=== PATIENT | female | born 1935 | race Two or more races ===

== ENCOUNTER 2024-03-19 18:15 | Emergency (ER) | payer OTHER ==
[~2024-03-19] VITALS: Ht 162.6 cm; Wt 85.5 kg
--- NOTE | 2024-03-19 18:50 | ED.PDOC ---
History of Present Illness HPI Comments 88 y/o F, with a Hx of arthritis, COPD w/3LPM PRN home O2, HLD, and HTN, is BIBA for c/o left-sided abdominal pain that radiates to underneath her left-breast and intermittent shortness of breath and nonproductive cough for 2x weeks, today. Patient endorses on symptoms worsening within the past 2x weeks amidst pain medication and prednisone placement and use following recent visit from [facility] and her PCP, respectively, following onset. She comments on pain being sharp in quality and worse whenever she coughs or takes a deep breath. Per [facility] report, patient was noted to have been found on her PRN 3LPM home O2 with an SpO2 of 99%, breathing shallowly, in addition to a respiratory rate in the 60-70 range and a blood pressure of 213/74. En route, patient was given 100ug fentanyl and 4mg Zofran en route. Upon arrival to ED, patient still endorses on having pain. She denies having any chest pain, fever, chills, nausea, vomiting, or other associated symptoms or modifiers at this time. Chief Complaint: Abdominal Pain Time Seen by MD: 18:30 Reviewed Notes: Nurses Notes, Dental Professional Notes, Medications, Allergies Allergies: Coded Allergies: Acetaminophen (Verified Allergy, Unknown, 03/19/24) Hydrocodone (Verified Allergy, Unknown, 03/19/24) Information Source: Patient, Emergency Med Personnel Mode of Arrival: EMS Severity: Moderate Timing: Weeks Duration: Since onset Prehospital treatment: 12 Lead EKG, Director Labor Standards, Oxygen, Pain Meds (100ug F entanyl ), Other (4mg Zofran ) Past Medical History PAST MEDICAL HISTORY: Arthritis, COPD (3lpm PRN home O2), High Lipids, HTN Past Medical History (Other): shingles Surgical History: Denies all surgeries SPRING LAYER History: Denies all SPRING LAYER Hx Family History Family History: Unknown Social History Smoker: Non-Smoker Alcohol: Denies ETOH Use Drugs: Denies Drug Use Lives In: Home Respiratory: reports: cough, shortness of breath Gastrointestinal: reports: abdominal pain (left-sided ) All Other Systems: Reviewed and Negative (negative unless otherwise stated above or in HPI) Physical Exam Exam Comments General Appearance: No Apparent Distress, Normal, Other (appears uncomfortable ) HEENT: Normal ENT Inspection, Pharynx Normal, TMs Normal Neck: Full Range of Motion, Non-Tender, Normal, Normal Inspection Respiratory: Chest Non-Tender, No Accessory Muscle Use, No Respiratory Distress, Other (coarse breath sounds, bilaterally, tachypneic) Cardiovascular: No Edema, No JVD, No Murmur, No Gallop, Normal Peripheral Pulses, Regular Rate/Rhythm, Tachycardia Breast Exam: Deferred Gastrointestinal: LUQ, No Organomegaly, No Pulsatile Mass, Normal Bowel Sounds, Soft, Tenderness (LUQ) Genitalia: Deferred Pelvic: Deferred Rectal: Deferred Extremities: No calf tenderness, Normal capillary refill, Normal inspection, Normal range of motion, Non-tender, No pedal edema Musculoskeletal : Apperance: Normal Neurologic: Alert, state assessed properties director II-XII nml as Tested, No Motor Deficits, Normal Affect, Normal Mood, No Sensory Deficits Cerebellar Function: Normal Reflexes: Normal Skin: Dry, Normal Color, Warm Lymphatic: No Adenopathy Was a procedure done? Was a procedure done?: No EKG EKG : Pulse Rate (adult): 102 [place]: Normal Cardiac Rhythm: ST Block: None Hypertrophy: None ST: Normal Differential Dx Considerations may include: musculoskeletal pain, nephrolithiasis, pyelonephritis, cystitis, gastritis, gastroenteritis, COPD exacerbation, URI, pleural effusions, viral syndrome X-Ray, Labs, Meds, VS Vital Signs Date Time Temp Pulse Resp B/P (MAP) Pulse Ox O2 Delivery O2 Flow Rate FiO2 03/20/24 00:00 77 20 155/75 (101) 96 03/19/24 23:29 Nasal Cannula* 2 28 03/19/24 23:23 98.7 83 16 158/69 (98) 97 98.7 03/19/24 22:19 89 20 132/76 03/19/24 21:23 98.2 89 16 132/76 (94) 96 98.2 03/19/24 18:50 102 03/19/24 18:20 102 03/19/24 18:20 98.9 97 30 136/92 (107) 99 Lab Test 03/19/24 22:13 03/19/24 19:45 03/19/24 18:55 Range/Units Troponin I High Sensitivity 11 10 9 </=34 ng/L White Blood Count 13.1 H 4.4-10.8 10^3/uL Red Blood Count 4.36 4.0-5.20 10^6/uL Hemoglobin 13.2 12.2-16.2 g/dL Hematocrit 39.3 36.0-46.0 % Mean Corpuscular Volume 90.1 80.0-100.0 fL Mean Corpuscular Hemoglobin 30.3 28.0-32.0 pg Mean Corpuscular Hemoglobin Concent 33.6 32.0-36.0 g/dL Red Cell Distribution Width 16.9 H 11.8-14.3 % Platelet Count 240 140-450 10^3/uL Mean Platelet Volume 6.8 L 6.9-10.8 fL Neutrophils (%) (Auto) 37.0-80.0 % Lymphocytes (%) (Auto) 10.0-50.0 % Monocytes (%) (Auto) 0.0-12.0 % Basophils (%) (Auto) 0.0-2.0 % Neutrophils # (Auto) 1.6-8.6 10 ^3/uL Lymphocytes # (Auto) 0.4-5.4 10 ^3/uL Monocytes # (Auto) 0-1.3 10 ^3/uL Differential Total Cells Counted 100.0 100 Neutrophils % (Manual) 86 H 37.0-80.0 Band Neutrophils % (Manual) 3 Lymphocytes % (Manual) 6 L 10.0-50.0 Monocytes % (Manual) 5 0-12 Eosinophils % (Manual) 0 0-7 Basophils % (Manual) 0 0.0-2.0 Metamyelocytes % (manual) 0 Myelocytes % (Manual) 0 Promyelocytes % (Manual) 0 Blast Cells % (Manual) 0 Reactive Lymphocytes 0 Platelet Estimate Adequate D-Dimer, Quantitative 0.94 H 0.0-0.49 mg/L FEU Sodium Level 138 136-145 mmol/L Potassium Level 4.4 3.5-5.1 mmol/L Chloride Level 101 98-107 mmol/L Carbon Dioxide Level 31 20-31 mmol/L Anion Gap 6 5-15 Blood Urea Nitrogen 13 9-23 mg/dL Creatinine 0.72 0.550-1.02 mg/dL Glomerular Filtration Rate Calc 80 >90 mL/min BUN/Creatinine Ratio 18.1 10.0-20.0 Serum Glucose 123 H 74-106 mg/dL Calcium Level 10.0 8.7-10.4 mg/dL Total Bilirubin 0.6 0.2-1.0 mg/dL Aspartate Amino Transferase (AST) < 8 L 13-40 U/L Alanine Aminotransferase (ALT) 17 7-40 U/L Alkaline Phosphatase 46 46-116 U/L Total Protein 6.1 5.7-8.2 g/dL Albumin 4.4 3.2-4.8 g/dL Current Medications Medications (Trade) Dose Ordered Sig/Duncan Route Start Time Stop Time Status Last Admin Ondansetron HCl (Zofran) 4 mg ONCE ONCE IV 03/19/24 21:30 03/19/24 21:31 DC 03/19/24 22:18 Morphine Sulfate 4 mg ONCE ONCE IV 03/19/24 21:30 03/19/24 21:31 DC 03/19/24 22:19 [place] [address] Ph: [phone] DIAGNOSTIC IMAGING Diagnostic Imaging Report : [id number] Signed PATIENT: JUSTIN RIVERO ACCT: [id number] UNIT: [id number] : 1935 LOC: ER ROOM / BED: / AGE / SEX: 88 / F ADM STATUS: REG ER SERVICE 36 ORDERING PHYSICIAN: VALDO MCCRAY MD PROCEDURE(s): CXRP - CHEST PORTABLE REASON: sob ORDER NUMBER(s): [id number], ACCESSION NUMBER(s): [id number] CHEST RADIOGRAPH Indication: sob Technique: Single frontal view of the chest was obtained Comparison: None FINDINGS: Lines and Tubes: None Lungs: Diffuse interstitial prominence. Left lower lung zone opacification with obscuration of the left hemidiaphragm. Right mid lung zone atelectasis. Biapical pleural thickening. No pneumothorax. Cardiomediastinal contours: Size is within normal limits. Moderate atherosclerotic calcification and uncoiling of the aorta. Bones: No acute osseous abnormality. IMPRESSION: Opacification of the left lower lung zone with obscuration of the left hemidiaphragm which may be from overlying cardiac silhouette with underlying trace effusion/atelectasis / pneumonia not excluded. Right mid lung zone atelectasis. Biapical pleural thickening. Mild interstitial prominence could be from senescent changes with underlying pulmonary vascular congestion not excluded ATED BY: PASCALE MCDANIELS DO DICTATED DATE/TIME: 03/19/241942 SIGNED BY: PASCALE MCDANIELS DO SIGNED DATE/TIME: 03/19/241942 CC: [address] [address] Ph: [phone] DIAGNOSTIC IMAGING Diagnostic Imaging Report : [id number] Signed PATIENT: JUSTIN RIVERO ACCT: [id number] UNIT: [id number] : 1935 LOC: ER ROOM / BED: / AGE / SEX: 88 / F ADM STATUS: REG ER SERVICE 16 ORDERING PHYSICIAN: VALDO MCCRAY MD PROCEDURE(s): CTACH - CT ANGIO CHEST CONTRAST REASON: pleuritic pain, hypoxia, chest pain, elevated ddimer ORDER NUMBER(s): [id number], ACCESSION NUMBER(s): [id number] CLINICAL HISTORY: pleuritic pain, hypoxia, chest pain, elevated ddimer TECHNIQUE: CT angiogram of the chest was performed with intravenous contrast. 100 ml of omnipaque 350 was administered intravenously. 3D MIP reconstructed images were created and archived on the PACS system. This exam was performed according to our departmental dose optimization program. Up-to-date CT equipment and radiation dose reduction techniques are utilized as appropriate. CTDI: 30.86 DLP: 709.82 WID: COMPARISON: None FINDINGS: Lower Neck: Unremarkable Axilla, Mediastinum and Nikki: Small hiatal hernia. No thoracic lymphadenopathy. Heart and Great Vessels: Mild Cardiomegaly. 3-vessel coronary artery calcifications up to moderate in the left anterior descending coronary artery and right coronary artery. The thoracic aorta is patent and normal caliber containing moderate mixed atherosclerotic plaque. Dilatation of the right and left central pulmonary arteries. There is motion artifact in the right lower lobe pulmonary arteries. There is no central, segmental, or subsegmental pulmonary artery filling defects are seen to suggest pulmonary embolism. Airway, Lungs and Pleura: Soft tissue along the left lung apex in addition to bronchiectasis likely scarring. This is seen to a lesser extent in the right lung apex. There is mild bronchial wall thickening. There is soft tissue thickening and bronchiectasis in the lingula and anterior right middle lobe there are scattered nodular and ground-glass opacities predominantly in the right lower lobe. There is no pleural effusion or pneumothorax. Chest Wall and Osseous Structures: Chronic appearing mild compression fracture of T6. Mild thoracic spondylosis. Bony demineralization. No destructive osseous lesion. Upper abdomen: No acute abnormality. IMPRESSION: 1. No evidence of pulmonary embolism. 2. Scattered nodular and ground-glass opacities predominantly right lower lobe, likely atypical infection. 3. Scattered areas of scarring in the bilateral lung apices, in the lingula and anterior right middle lobe with volume loss and bronchiectasis. Consider sequelae of non tuberculosis mycobacterial infection. 4. Mild cardiomegaly and 3-vessel coronary artery calcifications up to moderate in the left anterior descending coronary artery in the right coronary artery. 5. Dilatation of the right and left main pulmonary arteries which could be related to pulmonary hypertension. 6. Small hiatal hernia. ATED BY: ARNOL MARVIN MD DICTATED DATE/TIME: 03/19/242357 SIGNED BY: ARNOL MARVIN MD SIGNED DATE/TIME: 03/19/242357 CC: Time of 1ST Reevaluation: 19:00 Reevaluation 1ST: Unchanged Patient Education/Counseling: Diagnosis, Treatment Family Education/Counseling: No Family Present Additional Information The following tests were ordered, and results were reviewed by me: CXR, CMP, CBC, D-dimer, EKG, troponin Additional Information was gathered from interviewing the following independent historians: EMT I reviewed and agreed with the following test results read by other providers: CXR I discussed treatment and results with medical personnel Departure 1 Departure Time of Disposition: 00:23 ([place] Authorization [id number] with worsening shortness of breath and lung infection. Patient is not septic. Patient empirically covered by antibiotics. Patient accepted for transfer to [place].) Impression: Primary Impression: Pneumonia Qualified Codes: J18.9 - Pneumonia, unspecified organism Additional Impression: Shortness of breath Disposition: 02 SHORT TERM HOSPITAL Admit to: Med Surg Condition: Serious Critical Care Note Critical Care Time?: No Stability Stability form required: No Heart Score Heart Score: Heart Score Response (Comments) Value History N/A 0 EKG N/A 0 Age N/A 0 Risk Factors N/A 0 Troponin N/A 0 Total 0 I personally scribed for VALDO MCCRAY MD ([email or web address]) on 03/19/24 at 18:50. Electronically submitted by Justin Sanford ([email or web address]). I personally scribed for VALDO MCCRAY MD ([email or web address]) on 03/19/24 at 18:56. Electronically submitted by Justin Sanford ([email or web address]). I personally scribed for VALDO MCCRAY MD ([email or web address]) on 03/19/24 at 20:35. Electronically submitted by Justin Sanford ([email or web address]). I personally scribed for VALDO MCCRAY MD ([email or web address]) on 03/20/24 at 00:09. Electronically submitted by Justin Sanford ([email or web address]). VALDO MCCRAY MD Mar 19, 2024 18:50
[2024-03-19 19:16] LABS: Hematocrit 39.3 % (36.0-46.0); Hemoglobin 13.2 g/dL (12.2-16.2); Mean Corpuscular Hemoglobin 30.3 pg (28.0-32.0); Mean Corpuscular Hgb Conc. 33.6 g/dL (32.0-36.0); Mean Corpuscular Volume 90.1 fL (80.0-100.0); Platelet Count (auto) 240 10^3/uL (140-450); Red Blood Cells 4.36 10^6/uL (4.0-5.20); Red Cell Distribution Width 16.9 % (11.8-14.3); White Blood Cell 13.1 10^3/uL (4.4-10.8)
[2024-03-19 19:30] LABS: Alanine Aminotransferase 17 U/L (7-40); Albumin 4.4 g/dL (3.2-4.8); Alkaline Phosphatase 46 U/L (46-116); Anion Gap 6 (5-15); Chloride 101 mmol/L (98-107); Potassium 4.4 mmol/L (3.5-5.1); Sodium 138 mmol/L (136-145)
[2024-03-19 19:31] LABS: Total Protein 6.1 g/dL (5.7-8.2)
[2024-03-19 19:34] LABS: Basophils % (manual) 0 (0.0-2.0); Blast Cells 0; Eosinophils % (manual) 0 (0-7); Metamyelocytes % 0; Myelocytes % 0; Promyelocytes % 0; Reactive Lymphocytes 0
[2024-03-19 19:44] LABS: Aspartate Aminotransferase < 8 U/L (13-40); Bilirubin, Total 0.6 mg/dL (0.2-1.0); Carbon Dioxide 31 mmol/L (20-31); Glucose 123 mg/dL (74-106)
--- NOTE | 2024-03-19 19:46 | DVH ---
CHEST RADIOGRAPH Indication: sob Technique: Single frontal view of the chest was obtained Comparison: None FINDINGS: Lines and Tubes: None Lungs: Diffuse interstitial prominence. Left lower lung zone opacification with obscuration of the l eft hemidiaphragm. Right mid lung zone atelectasis. Biapical pleural thickening. No pneumothorax. Cardiomediastinal contours: Size is within normal limits. Moderate atherosclerotic calcification and uncoiling of the aorta. Bones: No acute osseous abnormality. IMPRESSION: Opacification of the left lower lung zone with obscuration of the left hemidiaphragm which may be fro m overlying cardiac silhouette with underlying trace effusion/atelectasis / pneumonia not excluded. Right mid lung zone atelectasis. Biapical pleural thickening. Mild interstitial prominence could be from senescent changes with underlying pulmonary vascular conge stion not excluded
[2024-03-19 19:49] LABS: BUN/Creatinine Ratio 18.1 (10.0-20.0); Blood Urea Nitrogen 13 mg/dL (9-23)
[2024-03-19 20:12] LABS: Band Neutrophils % (manual) 3; Lymphocytes % (manual) 6 (10.0-50.0); Monocytes % (manual) 5 (0-12); Platelet Estimate Adequate
[2024-03-19] MEDS: IOHEXOL 350 MG/ML 100ML IJ ONE (21:30)
[2024-03-19] MEDS: ONDANSETRON HCL 4 MG/2 ML VIAL IV ONE (22:18)
[2024-03-19] MEDS: MORPHINE SULFATE 4 MG/ML SYR/VIAL IV ONE (22:19)
--- NOTE | 2024-03-20 00:01 | DVH ---
CLINICAL HISTORY: pleuritic pain, hypoxia, chest pain, elevated ddimer TECHNIQUE: CT angiogram of the chest was performed with intravenous contrast. 100 ml of omnipaque 350 was administered intravenously. 3D MIP reconstructed images were created and archived on the PACS sy stem. This exam was performed according to our departmental dose optimization program. Up-to-date CT equipment and radiation dose reduction techniques are utilized as appropriate. CTDI: 30.86 DLP: 709.82 WID: COMPARISON: None FINDINGS: Lower Neck: Unremarkable Axilla, Mediastinum and Nikki: Small hiatal hernia. No thoracic lymphadenopathy. Heart and Great Vessels: Mild Cardiomegaly. 3-vessel coronary artery calcifications up to moderate in the left anterior descending coronary artery and right coronary artery. The thoracic aorta is patent and normal caliber containing moderate mixed atherosclerotic plaque. Dilatation of the right and lef t central pulmonary arteries. There is motion artifact in the right lower lobe pulmonary arteries. Th ere is no central, segmental, or subsegmental pulmonary artery filling defects are seen to suggest pu lmonary embolism. Airway, Lungs and Pleura: Soft tissue along the left lung apex in addition to bronchiectasis likely s carring. This is seen to a lesser extent in the right lung apex. There is mild bronchial wall thicken ing. There is soft tissue thickening and bronchiectasis in the lingula and anterior right middle lobe there are scattered nodular and ground-glass opacities predominantly in the right lower lobe. There is no pleural effusion or pneumothorax. Chest Wall and Osseous Structures: Chronic appearing mild compression fracture of T6. Mild thoracic spondylosis. Bony demineralization. No destructive osseous lesion. Upper abdomen: No acute abnormality. IMPRESSION: 1. No evidence of pulmonary embolism. 2. Scattered nodular and ground-glass opacities predominantly right lower lobe, likely atypical infec tion. 3. Scattered areas of scarring in the bilateral lung apices, in the lingula and anterior right middle lobe with volume loss and bronchiectasis. Consider sequelae of non tuberculosis mycobacterial infec tion. 4. Mild cardiomegaly and 3-vessel coronary artery calcifications up to moderate in the left anterior descending coronary artery in the right coronary artery. 5. Dilatation of the right and left main pulmonary arteries which could be related to pulmonary hyper tension. 6. Small hiatal hernia.
[2024-03-20] MEDS: AZITHROMYCIN 250 MG TAB PO ONE (00:57)
[2024-03-20] MEDS: CEFEPIME 2GM/50ML NS 50 ML IV ONE (01:18)
[2024-03-20 01:27] LABS: COVID19 ANTIGEN SOFIA FIA NEGATIVE (NEGATIVE); Rapid Influenza A Negative (Negative); Rapid Influenza B Negative (Negative)
[2024-03-20 01:35] LABS: Urine Bacteria None Seen /hpf (None Seen)
[2024-03-20 02:19] LABS: Urine Blood Negative /uL (Negative); Urine Clarity Clear (Clear); Urine Color Yellow (Yellow); Urine Mucus FEW (None Seen); Urine Protein, UAD TRACE (Negative); Urine Specific Gravity 1.047 (1.001-1.035); Urine Squamous Epithelial Cell None Seen /hpf (<5); Urine Urobilinogen Normal (Negative); Urine WBC 11 /HPF (0-5); Urine pH 6.5 (5.0-9.0)
[2024-03-20] MEDS: ONDANSETRON HCL 4 MG/2 ML VIAL IV ONE (04:14)
[2024-03-20] MEDS: MORPHINE SULFATE 4 MG/ML SYR/VIAL IV ONE (04:15)
[2024-03-20 11:35] VITALS: O2SAT 95
[2024-03-20 12:55] VITALS: BP 170/89; PULSE 100; RESP 20; TEMP 98.2
--- NOTE | 2024-03-21 13:01 | ECG ---
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
== END 2024-03-20 13:25 | disposition short-term general hospital (02) ==
LOC: ER 18:15 → EDBD 18:15 → ER 03-20 00:27
DX: J18.9 Pneumonia, unspecified organism (principal); R06.02 Shortness of breath; E78.5 Hyperlipidemia, unspecified; I25.10 Atherosclerotic heart disease of native coronary artery without angina pectoris; I10 Essential (primary) hypertension; J44.9 Chronic obstructive pulmonary disease, unspecified; Z88.5 Allergy status to narcotic agent; Z88.8 Allergy status to other drugs, medicaments and biological substances; Z20.822 Contact with and (suspected) exposure to COVID-19
CPT/HCPCS: 36415; 71045; 71275; 80053; 81001; 83605; 84484; 85007; 85027; 85379; 87426; 87804; 96365; 96375; 96376; 99285; J0692; J2270; J2405; Q9967